=== PATIENT | female | born 1995 | race Hispanic/Latino ===

== ENCOUNTER → 2020-05-28 | Outpatient (REF) | payer OTHER, BC | LOC: M LAB REF 17:01 | PROVIDERS: ATTEND Internal Medicine Nephrology | DX: N18.6 End stage renal disease (principal); Z01.812 Encounter for preprocedural laboratory examination ==

== ENCOUNTER → 2020-06-21 | Outpatient (CLI) | payer BC, OTHER ==
--- NOTE | 2020-06-21 10:33 | REP ---
INDICATION: END STAGE RENAL DISEASE. COMPARISON: None. TECHNIQUE: Complete abdominal sonography. FINDINGS: Scanning through the right upper quadrant of the abdomen demonstrates a normal sized and walled gallbladder without evidence of stone or polyp. Common bile duct is normal measuring 0.3 cm in greatest diameter. No pancreatic abnormality is observed. There is a 0.5 cm echogenic focus in the right lobe of the liver consistent with a small granulomatous calcification. No other focal liver lesion is seen. Liver is not felt to be enlarged. Scanning in the left upper quadrant demonstrates a normal size homogeneous spleen measuring 9.3 cm in greatest diameter. There is no evidence of free fluid. Normal caliber aorta is seen. Renal cortical echogenicity pattern is increased consistent with chronic medical renal disease. Parenchyma is hyperechoic relative to spleen and isoechoic relative to liver parenchyma. No hydronephrosis is seen. No mass or cyst is observed. Right renal dimensions are 9.4 I 5.2 x 4.6 cm. The left kidney measures 9.3 x 4.2 x 5.0 cm. IMPRESSION: Increased renal cortical is echogenicity pattern consistent with chronic medical renal disease. Small granulomatous calcification in the liver. Otherwise negative complete abdominal sonography. <Electronically signed by Roberto Isbell > 06/21/20 [id number]
== END ==
LOC: M RAD 06-12 07:22
PROVIDERS: ATTEND Internal Medicine Nephrology
DX: N18.6 End stage renal disease (principal); Z01.818 Encounter for other preprocedural examination; K76.89 Other specified diseases of liver

== ENCOUNTER 2020-07-21 21:10 | Emergency (ER) | payer BC, OTHER ==
[~2020-07-21] VITALS: Ht 162.6 cm; Wt 66.3 kg
[2020-07-21] MEDS ORDERED: LOSA25TA14 PO (21:23)
[2020-07-21] MEDS ORDERED: NS 500 ML IV ONE (22:40)
[2020-07-21] MEDS ORDERED: ONDANSETRON 4MG/2ML VIAL IV ONE (22:40)
[2020-07-21 22:43] LABS: BASO % 0.2 % (0.0-1.0); EOS % 0.2 % (0.0-3.0); HEMATOCRIT 38.1 % (36.0-47.0); HEMOGLOBIN 12.4 g/dl (12.0-15.5); LYMPH # 1.1 10^3/uL (1.5-5.0); LYMPH % 12.6 % (24.0-44.0); MEAN CORPUSCULAR HEMOGLOBIN 30.9 pg (27.0-33.0); MEAN CORPUSCULAR HGB CONC 32.5 g/dl (32.0-36.5); MONO # 0.6 10^3/uL (0.0-0.8); MONO % 7.2 % (2.0-8.0); NEUTROPHILS # 6.6 10^3/uL (1.5-8.5); NEUTROPHILS % 79.3 % (36.0-66.0); PLATELET COUNT, AUTOMATED 187 10^3/uL (150-450); RED BLOOD COUNT 4.01 10^6/uL (4.00-5.40); WHITE BLOOD COUNT 8.4 10^3/uL (4.0-10.0)
[2020-07-21 23:02] LABS: ERYTHROCYTE SEDIMENTATION RATE 31 mm/hr (0-20)
[2020-07-21 23:06] LABS: C REACTIVE PROTEIN QUANTITATIV 5.14 MG/DL (0.00-0.30)
[2020-07-21 23:40] LABS: HCG, SERUM QUALITATIVE NEGATIVE (NEGATIVE)
[2020-07-22] MEDS ORDERED: ACETAMINOPHEN 500 MG TAB PO ONE (00:15)
[2020-07-22 00:34] LABS: MONO REFLEX EBV COMP NEGATIVE (NEGATIVE)
[2020-07-22] MEDS ORDERED: ONDA4TAB6 PO (01:20)
[2020-07-22 01:30] VITALS: BP 122/80
[2020-07-22 01:40] LABS: ALBUMIN 3.2 GM/DL (3.2-5.2); ALT/SGPT 22 U/L (12-78); BILIRUBIN,DIRECT < 0.1 MG/DL (0.0-0.2); BILIRUBIN,TOTAL 0.2 MG/DL (0.2-1.0); LIPASE 130 U/L (73-393)
[2020-07-24 14:09] LABS: EBV AB TO NUCLEAR ANTIGEN 61.3 U/mL (0.0-17.9); EBV VIRAL CAPSID AG IgM <36.0 U/mL (0.0-35.9)
== END 2020-07-22 01:32 | disposition home or self-care (01) ==
LOC: M ED 21:10
DX: R50.9 Fever, unspecified (principal); R11.2 Nausea with vomiting, unspecified; R19.7 Diarrhea, unspecified; N18.6 End stage renal disease; I12.0 Hypertensive chronic kidney disease with stage 5 chronic kidney disease or end stage renal disease; Z99.2 Dependence on renal dialysis; N02.8 Recurrent and persistent hematuria with other morphologic changes
CPT/HCPCS: 80047; 80076; 81001; 83605; 83690; 84703; 85025; 85652; 86140; 86308; 86664; 86665; 87040; 87086; 87798; 87880; 96361; 96374; 99284; J2405

== ENCOUNTER → 2020-12-06 | Outpatient (CLI) | payer OTHER ==
[~2020-12-06] MED LIST: LOSA25TA14 PO; ONDA4TAB6 PO
--- NOTE | 2020-12-06 08:49 | REP ---
INDICATION: GRANULOMA OF LIVER. COMPARISON: 06/21/2020. TECHNIQUE: Real-time sonographic evaluation of ABDOMEN performed. FINDINGS: The gallbladder demonstrates no evidence of intraluminal sludge or calculi, wall thickening or pericholecystic fluid. There is no intrahepatic or extrahepatic biliary dilatation, common bile duct measures 1 mm in maximum diameter. The liver demonstrates homogeneous echotexture with no gross mass. Once again a calcified granuloma seen in the right lobe. The pancreas demonstrates homogeneous echotexture with no gross mass. Spleen is normal in size with no intrinsic abnormality, measuring 10.1 cm in length. There is no evidence of hydronephrosis, cyst, mass, or calculus in either kidney. The right kidney measures 8.5 x 5.1 x 4.0 cm. Left renal dimensions are 8.6 x 4.0 x 4.4 cm. The kidneys appear smaller when compared to the prior exam, prior right renal length 9.4 cm and left renal length 9.3 cm. The abdominal aorta is normal in caliber with no aneurysm. No free fluid is seen. Incidental note is made of a tiny amount of pericardial fluid which is likely of no clinical significance. IMPRESSION: Stable calcified granuloma right lobe of the liver. The kidneys appear mildly atrophic, measuring smaller than the prior exam. <Electronically signed by Louie Mendez > 12/06/20 08
== END ==
LOC: M RAD 07:22
PROVIDERS: ATTEND Internal Medicine Infectious Disease
DX: K75.3 Granulomatous hepatitis, not elsewhere classified (principal)

== ENCOUNTER 2021-06-15 01:05 | Emergency (ER) | payer OTHER ==
[~2021-06-15] VITALS: Ht 162.6 cm; Wt 66.0 kg
[~2021-06-15 01:05] MED LIST changes: +LOSA25TA13 PO; -LOSA25TA14 PO
[2021-06-15] MEDS ORDERED: NEPH1TAB11 PO (01:24)
[2021-06-15] MEDS ORDERED: LEXA1TAB PO (01:24)
[2021-06-15] MEDS ORDERED: TORS100T PO (01:24)
[2021-06-15] MEDS ORDERED: CALC1CAP PO (01:24)
[2021-06-15] MEDS ORDERED: LIPI20TA PO (01:24)
[2021-06-15 03:44] LABS: BASO % 0.6 % (0.0-1.0); EOS # 0.2 10^3/uL (0.0-0.5); EOS % 2.8 % (0.0-3.0); HEMATOCRIT 34.5 % (36.0-47.0); HEMOGLOBIN 11.1 g/dl (12.0-15.5); LYMPH # 2.1 10^3/uL (1.5-5.0); LYMPH % 32.8 % (24.0-44.0); MEAN CORPUSCULAR HEMOGLOBIN 31.6 pg (27.0-33.0); MEAN CORPUSCULAR HGB CONC 32.2 g/dl (32.0-36.5); MEAN CORPUSCULAR VOLUME 98.3 fl (80.0-96.0); MONO # 0.9 10^3/uL (0.0-0.8); NEUTROPHILS # 3.3 10^3/uL (1.5-8.5); NEUTROPHILS % 50.5 % (36.0-66.0); PLATELET COUNT, AUTOMATED 203 10^3/uL (150-450); RED BLOOD COUNT 3.51 10^6/uL (4.00-5.40); WHITE BLOOD COUNT 6.5 10^3/uL (4.0-10.0)
[2021-06-15 04:05] LABS: CK-MB VALUE MASS < 1.0 NG/ML (<3.6); CPK CREATINE PHOSPHOKINASE 48 U/L (26-192); MB/CK RELATIVE INDEX 2.08 (< OR =4)
[2021-06-15 04:11] LABS: CALCIUM LEVEL 8.5 MG/DL (8.5-10.1); CREATININE FOR GFR 4.12 MG/DL (0.55-1.30); GLOMERULAR FILTRATION RATE 14.2 (>60); MAGNESIUM LEVEL 2.1 MG/DL (1.8-2.4); POTASSIUM SERUM 3.4 MEQ/L (3.5-5.1)
[2021-06-15 08:03] VITALS: BP 119/64
== END 2021-06-15 08:03 | disposition home or self-care (01) ==
LOC: M ED 01:05
DX: R07.89 Other chest pain (principal); N18.6 End stage renal disease; Z99.2 Dependence on renal dialysis; I10 Essential (primary) hypertension; E78.5 Hyperlipidemia, unspecified; F32.9 Major depressive disorder, single episode, unspecified; Z79.899 Other long term (current) drug therapy

== ENCOUNTER → 2021-12-10 | Outpatient (REF) | payer OTHER ==
[~2021-12-10] MED LIST changes: +CALC1CAP PO; +LEXA1TAB PO; +LIPI20TA PO; +NEPH1TAB11 PO; +TORS100T PO
[2021-12-11 18:52] LABS: PERCENT SATURATION 19.5 % (13.2-45.0)
== END ==
LOC: M LAB REF 16:43
PROVIDERS: ATTEND Internal Medicine Nephrology
DX: D50.9 Iron deficiency anemia, unspecified (principal)

== ENCOUNTER 2022-03-17 15:03 | Emergency (ER) | payer OTHER ==
[~2022-03-17] VITALS: Ht 162.6 cm; Wt 74.5 kg
[2022-03-17 17:15] LABS: HEMATOCRIT 36.9 % (36.0-47.0); HEMOGLOBIN 11.6 g/dl (12.0-15.5); MEAN CORPUSCULAR HEMOGLOBIN 29.3 pg (27.0-33.0); MEAN CORPUSCULAR HGB CONC 31.4 g/dl (32.0-36.5); MEAN CORPUSCULAR VOLUME 93.2 fl (80.0-96.0); PLATELET COUNT, AUTOMATED 229 10^3/uL (150-450); RED BLOOD COUNT 3.96 10^6/uL (4.00-5.40); WHITE BLOOD COUNT 7.5 10^3/uL (4.0-10.0)
[2022-03-17 17:42] LABS: ALBUMIN 3.9 G/DL (3.2-5.2); BILIRUBIN,DIRECT 0.2 MG/DL (<0.4); BILIRUBIN,TOTAL 0.4 MG/DL (0.3-1.2); CALCIUM LEVEL 9.3 MG/DL (8.5-10.1); CREATININE FOR GFR 1.38 MG/DL (0.55-1.30); GLOMERULAR FILTRATION RATE 49.6 (>60); POTASSIUM SERUM 4.6 MMOL/L (3.5-5.1); TOTAL PROTEIN 7.5 G/DL (5.7-8.2)
[2022-03-17 17:52] LABS: LYMPHOCYTES 19 % (16-44); MONOCYTES 9 % (0-5); NEUTROPHILS 67 % (28-66); PLATELET ESTIMATE NORMAL (NORMAL)
[2022-03-17] MEDS ORDERED: ONDANSETRON 4MG 2ML VIAL IV ONE (18:15)
[2022-03-17] MEDS ORDERED: NS 1,000 ML IV ONE (18:15)
[2022-03-17] MEDS ORDERED: CEFDINIR 300 MG CAP (OMNICEF) PO ONE (20:35)
[2022-03-17] MEDS ORDERED: NS 500 ML IV ONE (20:35)
[2022-03-17 21:14] VITALS: BP 132/71
[2022-03-17] MEDS ORDERED: REGL10TA6 PO (21:15)
[2022-03-17] MEDS ORDERED: CEFD300C41 PO (21:15)
[2022-03-17] MEDS ORDERED: ACETAMINOPHEN 500 MG TAB PO ONE (22:25)
[2022-03-17 22:40] LABS: GC DNA AMPLIFICATION NEGATIVE (NEGATIVE)
== END 2022-03-17 22:27 | disposition home or self-care (01) ==
LOC: M ED 15:03
DX: N39.0 Urinary tract infection, site not specified (principal); E86.0 Dehydration; R97.8 Other abnormal tumor markers; I10 Essential (primary) hypertension; Z79.02 Long term (current) use of antithrombotics/antiplatelets; Z79.811 Long term (current) use of aromatase inhibitors; Z79.899 Other long term (current) drug therapy
CPT/HCPCS: 71045; 80048; 80076; 81000; 81015; 83605; 83690; 84702; 85025; 87040; 87486; 87581; 87633; 87661; 87798; 87810; 87850; 96361; 96374; 99283; J2405

== ENCOUNTER → 2022-03-25 | Outpatient (REF) | payer OTHER ==
[~2022-03-25] MED LIST changes: +CEFD300C41 PO; +REGL10TA6 PO
[2022-03-25 18:21] LABS: PERCENT SATURATION 58.6 % (13.2-45.0)
== END ==
LOC: M LAB REF 17:12
PROVIDERS: ATTEND Internal Medicine Nephrology
DX: D50.9 Iron deficiency anemia, unspecified (principal)

== ENCOUNTER 2022-04-04 13:16 | Emergency (ER) | payer MEDICARE, OTHER ==
[~2022-04-04] VITALS: Ht 162.6 cm; Wt 74.0 kg
[2022-04-04] MEDS ORDERED: ACETAMINOPHEN 325 MG TAB PO ONE (16:40)
[2022-04-04 17:48] LABS: HEMATOCRIT 33.5 % (36.0-47.0); HEMOGLOBIN 10.6 g/dl (12.0-15.5); MEAN CORPUSCULAR HEMOGLOBIN 29.7 pg (27.0-33.0); MEAN CORPUSCULAR HGB CONC 31.6 g/dl (32.0-36.5); MEAN CORPUSCULAR VOLUME 93.8 fl (80.0-96.0); PLATELET COUNT, AUTOMATED 192 10^3/uL (150-450); RED BLOOD COUNT 3.57 10^6/uL (4.00-5.40); WHITE BLOOD COUNT 9.2 10^3/uL (4.0-10.0)
[2022-04-04 18:05] LABS: LYMPHOCYTES 19 % (16-44); METAMYELOCYTES 1 % (0-0); MONOCYTES 10 % (0-5); NEUTROPHILS 68 % (28-66)
[2022-04-04 18:06] LABS: BILIRUBIN,DIRECT 0.2 MG/DL (<0.4)
[2022-04-04 18:07] LABS: ALBUMIN 3.8 G/DL (3.2-5.2); BILIRUBIN,TOTAL 0.5 MG/DL (0.3-1.2); CALCIUM LEVEL 9.5 MG/DL (8.5-10.1); CREATININE FOR GFR 1.42 MG/DL (0.55-1.30); PLATELET CLUMPS SMALL AMT; PLATELET ESTIMATE NORMAL (NORMAL); POTASSIUM SERUM 4.9 MMOL/L (3.5-5.1); TOTAL PROTEIN 6.8 G/DL (5.7-8.2)
[2022-04-04] MEDS ORDERED: NS 1,000 ML IV ONE (18:25)
[2022-04-04] MEDS ORDERED: CEFD300CAP PO (18:35)
[2022-04-04] MEDS ORDERED: CEFDINIR 300 MG CAP (OMNICEF) PO ONE (18:35)
[2022-04-04 20:41] VITALS: BP 132/69
[2022-04-04] MEDS ORDERED: CEFD300C41 PO (20:54)
[2022-04-06] MEDS ORDERED: NITR1CAP11 PO (08:09)
== END 2022-04-04 21:03 | disposition home or self-care (01) ==
LOC: M ED 13:16
DX: N30.00 Acute cystitis without hematuria (principal); N39.0 Urinary tract infection, site not specified; N17.9 Acute kidney failure, unspecified; B34.8 Other viral infections of unspecified site; B34.1 Enterovirus infection, unspecified; I10 Essential (primary) hypertension; Z94.0 Kidney transplant status; Z79.899 Other long term (current) drug therapy

== ENCOUNTER 2022-06-01 15:42 | Emergency (ER) | payer OTHER, MEDICARE ==
[~2022-06-01] VITALS: Ht 165.1 cm; Wt 73.0 kg
[~2022-06-01 15:42] MED LIST changes: +CEFD300CAP PO; +NITR1CAP11 PO
[2022-06-01] MEDS ORDERED: MYCO1TAB (15:58)
[2022-06-01] MEDS ORDERED: ENVA200T (15:58)
[2022-06-01] MEDS ORDERED: FAMO1TAB11 (15:58)
[2022-06-01] MEDS ORDERED: PRED5TA (15:58)
[2022-06-01] MEDS ORDERED: CARV6.25 (15:58)
[2022-06-01] MEDS ORDERED: ONDANSETRON 4MG 2ML VIAL IV ONE (16:10)
[2022-06-01] MEDS ORDERED: NS 1,000 ML IV SCH (16:10)
[2022-06-01 16:45] LABS: URINE PREG TEST NEGATIVE (NEGATIVE)
[2022-06-01 16:52] LABS: HEMATOCRIT 38.2 % (36.0-47.0); HEMOGLOBIN 12.3 g/dl (12.0-15.5); MEAN CORPUSCULAR HEMOGLOBIN 30.5 pg (27.0-33.0); MEAN CORPUSCULAR HGB CONC 32.2 g/dl (32.0-36.5); MEAN CORPUSCULAR VOLUME 94.8 fl (80.0-96.0); PLATELET COUNT, AUTOMATED 247 10^3/uL (150-450); RED BLOOD COUNT 4.03 10^6/uL (4.00-5.40); WHITE BLOOD COUNT 5.3 10^3/uL (4.0-10.0)
[2022-06-01 17:13] LABS: LIPASE 29 U/L (12-53)
[2022-06-01 17:19] LABS: ALBUMIN 4.2 G/DL (3.2-5.2); ALKALINE PHOSPHATASE 75 U/L (46-116); ALT/SGPT 31 U/L (7.0-40); AST/SGOT 20 U/L (<34); BILIRUBIN,DIRECT 0.2 MG/DL (<0.4); BILIRUBIN,TOTAL 0.6 MG/DL (0.3-1.2); BLOOD UREA NITROGEN 18 MG/DL (9-23); CARBON DIOXIDE LEVEL 25 MMOL/L (20-31); CHLORIDE LEVEL 103 MMOL/L (98-107); CREATININE FOR GFR 0.92 MG/DL (0.55-1.30); GLOMERULAR FILTRATION RATE > 60.0 (>60); GLUCOSE, FASTING 123 MG/DL (60-100); SODIUM LEVEL 137 MMOL/L (136-145); TOTAL PROTEIN 7.1 G/DL (5.7-8.2)
[2022-06-01 17:23] LABS: ATYPICAL LYMPH 2 % (0-5); LYMPHOCYTES 15 % (16-44); METAMYELOCYTES 1 % (0-0); MONOCYTES 6 % (0-5); NEUTROPHILS 71 % (28-66)
[2022-06-01 17:24] LABS: PLATELET ESTIMATE NORMAL (NORMAL)
[2022-06-01] MEDS ORDERED: ONDA4TAB6 PO (20:06)
[2022-06-01 20:12] VITALS: BP 109/69
== END 2022-06-01 20:19 | disposition home or self-care (01) ==
LOC: M ED 15:42
DX: R11.10 Vomiting, unspecified (principal); R19.7 Diarrhea, unspecified; I10 Essential (primary) hypertension; Z72.0 Tobacco use; Z79.899 Other long term (current) drug therapy
CPT/HCPCS: 80048; 80076; 81001; 83690; 84703; 85025; 93041; 96374; 99285; J2405

== ENCOUNTER 2022-11-06 10:55 | Emergency (ER) | payer MEDICARE, OTHER ==
[~2022-11-06] VITALS: Ht 162.6 cm; Wt 73.3 kg
[~2022-11-06 10:55] MED LIST changes: +CARV6.25; +ENVA200T; +FAMO1TAB11; +MYCO1TAB; +PRED5TA
[2022-11-06] MEDS ORDERED: AMOX875T2 PO (15:36)
[2022-11-06 15:54] VITALS: BP 113/79; TEMP 97.6; O2SAT 99
== END 2022-11-06 15:56 | disposition home or self-care (01) ==
LOC: M ED 10:55
DX: J03.90 Acute tonsillitis, unspecified (principal)